=== PATIENT | male | born 1965 | race Two or more races ===

== ENCOUNTER 2019-12-30 21:37 | Emergency (ER) | payer OTHER ==
[~2019-12-30] VITALS: Ht 180.3 cm; Wt 117.9 kg
[2019-12-30] MEDS ORDERED: INVOKAMET (22:30)
[2019-12-30] MEDS ORDERED: CIPRO500 MG PO (22:35)
== END 2019-12-30 22:42 | disposition home or self-care (01) ==
LOC: ER 21:37
DX: S71.152A Open bite, left thigh, initial encounter (principal); W55.01XA Bitten by cat, initial encounter; Y93.89 Activity, other specified; Y92.89 Other specified places as the place of occurrence of the external cause; Y99.8 Other external cause status

== ENCOUNTER 2021-10-16 19:17 | Inpatient (IN) | payer OTHER ==
[~2021-10-16] VITALS: Ht 180.3 cm; Wt 112.9 kg
[~2021-10-16 19:17] MED LIST: CIPRO500 MG PO; INVOKAMET
[2021-10-19] MEDS ORDERED: INVOKAMET 50-11 EACH (09:30)
[2021-10-30] MEDS ORDERED: AMOX-CLAV 875-1 EAC1 PO (17:00)
[2021-10-30] MEDS ORDERED: Lantus 1000 UNITS/10 SUBCUTANEO (17:00)
[2021-10-30] MEDS ORDERED: AMLODIPINE BESYL5 MG PO (17:00)
[2021-10-30] MEDS ORDERED: HYDROCHLOROTHIA25 MG PO (17:00)
[2021-10-30] MEDS ORDERED: HUMALOG100 UNIT/1 SUBCUTANEO (17:00)
[2021-10-30] MEDS ORDERED: INTESTINEX680 M1 PO (17:00)
[2021-10-30] MEDS ORDERED: AVAPRO300 MG PO (17:00)
[2021-10-30] MEDS ORDERED: CARdura 4MG TABLET PO (17:00)
== END 2021-10-30 18:00 | disposition home or self-care (01) | DRG 718 ==
LOC: ER 19:17 → MEDI 10-17 13:47 → SURG 10-17 13:47 → SEC-K 10-17 17:50 → SURG 10-18 02:13
PROVIDERS: Specialist; ADMIT Internal Medicine; ATTEND Internal Medicine
PROC: 0V95XZZ Drainage of Scrotum, External Approach (ICD-10-PCS; 2021-10-17)
PROC: BV44ZZZ Ultrasonography of Scrotum (ICD-10-PCS; 2021-10-17)
PROC: 0JBB0ZZ Excision of Perineum Subcutaneous Tissue and Fascia, Open Approach (ICD-10-PCS; principal; 2021-10-26 18:15)
DX: N49.2 Inflammatory disorders of scrotum (principal); I10 Essential (primary) hypertension; E11.65 Type 2 diabetes mellitus with hyperglycemia; I87.2 Venous insufficiency (chronic) (peripheral); E66.8 Other obesity; Z68.34 Body mass index [BMI] 34.0-34.9, adult; Z79.4 Long term (current) use of insulin; B95.1 Streptococcus, group B, as the cause of diseases classified elsewhere; Z20.822 Contact with and (suspected) exposure to COVID-19

== ENCOUNTER 2022-01-19 14:34 | Emergency (ER) | payer OTHER ==
[~2022-01-19] VITALS: Ht 180.3 cm; Wt 117.9 kg
[~2022-01-19 14:34] MED LIST changes: +AMLODIPINE BESYL5 MG PO; +AMOX-CLAV 875-1 EAC1 PO; +AVAPRO300 MG PO; +CARdura 4MG TABLET PO; +HUMALOG100 UNIT/1 SUBCUTANEO; +HYDROCHLOROTHIA25 MG PO; +INTESTINEX680 M1 PO; +INVOKAMET 50-11 EACH; +Lantus 1000 UNITS/10 SUBCUTANEO
[2022-01-19] MEDS ORDERED: IRBESARTAN-HCT1 EACH PO (14:59)
== END 2022-01-19 18:59 | disposition home or self-care (01) ==
LOC: ER 14:34
DX: R60.0 Localized edema (principal); M79.661 Pain in right lower leg; B95.61 Methicillin susceptible Staphylococcus aureus infection as the cause of diseases classified elsewhere; B96.89 Other specified bacterial agents as the cause of diseases classified elsewhere; I10 Essential (primary) hypertension; E11.9 Type 2 diabetes mellitus without complications; Z79.84 Long term (current) use of oral hypoglycemic drugs

== ENCOUNTER 2022-01-20 09:18 | Outpatient (CLI) | payer OTHER ==
[~2022-01-20 09:18] MED LIST changes: +IRBESARTAN-HCT1 EACH PO
== END 2022-01-20 09:21 | disposition home or self-care (01) ==
LOC: NUCLEAR 09:18
PROVIDERS: ATTEND Emergency Medicine
DX: I82.409 Acute embolism and thrombosis of unspecified deep veins of unspecified lower extremity (principal); L03.115 Cellulitis of right lower limb

== ENCOUNTER → 2022-01-22 | Outpatient (CLI) | payer OTHER | END | disposition home or self-care (01) | LOC: NUCLEAR 09:01 | PROVIDERS: ATTEND Emergency Medicine | DX: I82.409 Acute embolism and thrombosis of unspecified deep veins of unspecified lower extremity (principal); L03.115 Cellulitis of right lower limb ==

== ENCOUNTER 2022-03-02 09:04 | Outpatient (CLI) | payer OTHER | END 2022-03-02 09:17 | disposition home or self-care (01) | LOC: SONOGRAMA 09:04 | PROVIDERS: ATTEND Specialist | DX: R10.84 Generalized abdominal pain (principal); I10 Essential (primary) hypertension; I87.2 Venous insufficiency (chronic) (peripheral); Z79.4 Long term (current) use of insulin; E78.5 Hyperlipidemia, unspecified; E11.9 Type 2 diabetes mellitus without complications; E03.9 Hypothyroidism, unspecified; E11.51 Type 2 diabetes mellitus with diabetic peripheral angiopathy without gangrene; E66.8 Other obesity ==

== ENCOUNTER 2022-08-26 15:01 | Outpatient (CLI) | payer OTHER | END 2022-08-26 15:09 | disposition home or self-care (01) | LOC: RAD 15:01 | PROVIDERS: ATTEND Specialist | DX: L97.509 Non-pressure chronic ulcer of other part of unspecified foot with unspecified severity (principal); M86.9 Osteomyelitis, unspecified; E10.621 Type 1 diabetes mellitus with foot ulcer ==

== ENCOUNTER 2022-09-03 10:53 | Inpatient (IN) | payer OTHER ==
[~2022-09-03] VITALS: Ht 170.2 cm; Wt 122.5 kg
[2022-09-03] MEDS ORDERED: PROTONIX40 M1 (11:04)
[2022-09-03] MEDS ORDERED: ABATINEX680 MG (11:04)
== END 2022-09-28 13:32 | disposition designated cancer center or children's hospital (05) | DRG 617 ==
LOC: ER 10:53 → MEDJ 23:30 → MEDI 09-27 14:52
PROVIDERS: Specialist; ADMIT Internal Medicine; ATTEND Internal Medicine
PROC: BQ3FZZZ Magnetic Resonance Imaging (MRI) of Left Lower Leg (ICD-10-PCS; 2022-09-04)
PROC: 0Y6Y0Z1 Detachment at Left 5th Toe, High, Open Approach (ICD-10-PCS; principal; 2022-09-08 07:45)
PROC: B24BZZZ Ultrasonography of Heart with Aorta (ICD-10-PCS; 2022-09-11)
DX: E11.621 Type 2 diabetes mellitus with foot ulcer (principal); I50.20 Unspecified systolic (congestive) heart failure; L97.528 Non-pressure chronic ulcer of other part of left foot with other specified severity; M86.8X7 Other osteomyelitis, ankle and foot; M86.172 Other acute osteomyelitis, left ankle and foot; L03.032 Cellulitis of left toe; B95.2 Enterococcus as the cause of diseases classified elsewhere; B96.89 Other specified bacterial agents as the cause of diseases classified elsewhere; Z79.4 Long term (current) use of insulin; I86.8 Varicose veins of other specified sites; E66.01 Morbid (severe) obesity due to excess calories; E11.628 Type 2 diabetes mellitus with other skin complications; E11.610 Type 2 diabetes mellitus with diabetic neuropathic arthropathy; I11.0 Hypertensive heart disease with heart failure; G47.33 Obstructive sleep apnea (adult) (pediatric); I25.10 Atherosclerotic heart disease of native coronary artery without angina pectoris; Z20.822 Contact with and (suspected) exposure to COVID-19
CPT/HCPCS: 73725

== ENCOUNTER 2023-02-17 12:45 | Outpatient (CLI) | payer OTHER ==
[~2023-02-17 12:45] MED LIST changes: +ABATINEX680 MG; +PROTONIX40 M1
== END 2023-02-17 12:47 | disposition home or self-care (01) ==
LOC: NUCLEAR 12:45
PROVIDERS: ATTEND Internal Medicine
DX: I11.0 Hypertensive heart disease with heart failure (principal); I50.20 Unspecified systolic (congestive) heart failure

== ENCOUNTER 2023-07-10 15:37 | Emergency (ER) | payer OTHER ==
[~2023-07-10] VITALS: Ht 180.3 cm; Wt 131.5 kg
[2023-07-10] MEDS ORDERED: VAZALORE81 MG (16:14)
[2023-07-10] MEDS ORDERED: LIPITOR40 M1 (16:14)
[2023-07-10] MEDS ORDERED: ALDACTAZIDE 251 EACH (16:15)
== END 2023-07-10 19:15 | disposition home or self-care (01) ==
LOC: ER 15:37
DX: B02.9 Zoster without complications (principal)

== ENCOUNTER 2024-06-30 12:07 | Emergency (ER) | payer OTHER ==
[~2024-06-30] VITALS: Ht 180.3 cm; Wt 127.0 kg
[~2024-06-30 12:07] MED LIST changes: +ALDACTAZIDE 251 EACH; +LIPITOR40 M1; +VAZALORE81 MG
[2024-06-30] MEDS ORDERED: ENTRESTO 24 MG1 EACH (12:15)
[2024-06-30] MEDS ORDERED: JARDIANCE10 MG (12:15)
[2024-06-30] MEDS ORDERED: ALDACTONE25 MG (12:16)
[2024-06-30] MEDS ORDERED: PEPCID AC20 MG (12:16)
[2024-06-30] MEDS ORDERED: ONDANSETRON HCL 2 MG/ML VIAL IV ONE (12:30)
[2024-06-30] MEDS ORDERED: FAMOtidine 10 MG/ML (4ML VIAL) IV ONE (12:30)
[2024-06-30] MEDS ORDERED: 0.9 % SODIUM CHLORIDE 1,000 ML IV ONE (12:45)
[2024-06-30 13:56] LABS: ALBUMIN 2.7 gm/dL (3.4-5.0); BILIRUBIN TOTAL 0.4 mg/dL (0.3-1.2); CALCIUM 8.5 mg/dL (8.5-10.1); CREATININE SERUM 1.31 mg/dL (0.70-1.30); GLOBULINA 6.2 G/DL (2.4-3.5); HEMATOCRIT 38.9 % (39.0-48.0); HEMOGLOBIN 12.9 g/dL (13-16.00); MEAN CELL VOLUME 81.9 fL (80.0-100.00); MEAN CORPUSCULAR HEMOGLOBIN 27.3 pg (27.00-32.0); MEAN CORPUSCULAR HGB CONC 33.3 g/dl (32.0-36.0); POTASSIUM 4.04 mEq/L (3.5-5.1); RED BLOOD COUNT 4.75 M/uL (4.00-6.00); RED CELL DISTRIBUTION WIDTH 15.1 % (11.5-14.5); TOTAL PROTEIN 8.9 gm/dL (6.4-8.2)
[2024-06-30 14:15] LABS: ABG PO2 89.5 mmHg (80-100); BASE EXCESS -2.5 mmol/l; BICARBONATE 21.9 mmol/l (23-25); SaO2 96.7 %; allen test SATISFACTORY; o2 21 %; puncture site RADIAL LEFT
[2024-06-30 14:29] LABS: PLATELET COUNT 102 K/uL (150-450)
== END 2024-06-30 15:05 | disposition home or self-care (01) ==
LOC: ER 12:09
PROVIDERS: General Practice
DX: A90 Dengue fever [classical dengue] (principal); E11.9 Type 2 diabetes mellitus without complications; Z79.84 Long term (current) use of oral hypoglycemic drugs; I10 Essential (primary) hypertension; I50.9 Heart failure, unspecified; Z20.822 Contact with and (suspected) exposure to COVID-19

== ENCOUNTER 2024-12-26 08:09 | Emergency (ER) | payer OTHER ==
[~2024-12-26] VITALS: Ht 180.3 cm; Wt 127.0 kg
[~2024-12-26 08:09] MED LIST changes: +ALDACTONE25 MG; +ENTRESTO 24 MG1 EACH; +JARDIANCE10 MG; +PEPCID AC20 MG
[2024-12-26 08:21] VITALS: BP 156/88; O2SAT 96
== END 2024-12-26 09:56 | disposition home or self-care (01) ==
LOC: ER 08:10
DX: I87.2 Venous insufficiency (chronic) (peripheral) (principal); I10 Essential (primary) hypertension; E11.9 Type 2 diabetes mellitus without complications; Z79.84 Long term (current) use of oral hypoglycemic drugs